=== PATIENT | female | born 1960 | race Caucasian/White ===

== ENCOUNTER 2021-05-20 16:07 | Outpatient (CLI) | payer OTHER ==
[~2021-05-20] VITALS: Ht 167.7 cm; Wt 66.4 kg
[2021-05-20] VITALS (7 sets, daily range): BP systolic 117–177; BP diastolic 62–85
[2021-05-20] MEDS ORDERED: NS IV 500 ML 500 ML ONE (16:28)
[2021-05-20] MEDS ORDERED: NS IV 500 ML 500 ML IV SCH ×2 (16:30)
[2021-05-20 17:32] LABS: HEMOGLOBIN 6.5 g/dL (11.5-16.0)
[2021-05-21 01:45] VITALS: BP 157/79
[2021-05-21 02:53] VITALS: BP 157/79
== END 2021-05-21 02:15 | disposition other institution (70) ==
LOC: SDC 16:07 → 4TH 18:50 → SDC 05-21 02:15
PROVIDERS: ATTEND Internal Medicine Nephrology
DX: D64.9 Anemia, unspecified (principal); M31.0 Hypersensitivity angiitis
CPT/HCPCS: 36415; 36430; 85014; 85018; 86850; 86900; 86901; 86920

== ENCOUNTER 2021-06-08 08:38 | Emergency (ER) | payer OTHER ==
[~2021-06-08] VITALS: Ht 167.7 cm; Wt 66.4 kg
[2021-06-08] MEDS ORDERED: LORazepam INJ 2 MG/ML (ATIVAN) VIAL IVP ONE ×3 (08:45→19:45)
[2021-06-08] MEDS ORDERED: LORazepam INJ 2 MG/ML (ATIVAN) VIAL ONE ×4 (08:46→19:31)
[2021-06-08 08:52] LABS: BASOPHILS # (AUTO) 0.1 10^3/uL (0.0-0.1); BASOPHILS % (AUTO) 1 % (0-10); EOSINOPHILS # (AUTO) 0.2 10^3/uL (0.0-0.3); EOSINOPHILS % (AUTO) 3 % (0-10); HEMATOCRIT 35 % (35-52); HEMOGLOBIN 11.6 g/dL (11.5-16.0); LYMPHOCYTES # (AUTO) 0.8 10^3/uL (1.0-4.0); LYMPHOCYTES % (AUTO) 10 % (12-44); MEAN CORPUSCULAR HEMOGLOBIN 32 pg (25-34); MEAN CORPUSCULAR HGB CONC 33 g/dL (32-36); MEAN CORPUSCULAR VOLUME 95 fL (80-99); MEAN PLATELET VOLUME 9.6 fL (9.0-12.2); MONOCYTES # (AUTO) 1.4 10^3/uL (0.0-1.0); MONOCYTES % (AUTO) 16 % (0-12); NEUTROPHILS # (AUTO) 5.9 10^3/uL (1.8-7.8); NEUTROPHILS % (AUTO) 70 % (42-75); PLATELET COUNT 272 10^3/uL (130-400); WHITE BLOOD COUNT 8.4 10^3/uL (4.3-11.0)
--- NOTE | 2021-06-08 08:53 | ED Neurological Problem ---
General Chief Complaint: Neuro-Stroke Like Symptoms Stated Complaint: POSSIBLE STROKE Source: patient Exam Limitations: no limitations History of Present Illness Date Seen by Provider: June 08, 2021 Time Seen by Provider: 08:36 Initial Comments Patient to the ER by EMS from [facility] with chief complaints had a couple focal seizures on the right side and is having some left facial droop. She has a history of stroke with small amount of right-sided residual deficits however patient walks and talks normally according to staff. She is very hard to get answers from and not acting herself. She is not having any nausea fevers chills or cough. She says her only complaint she has is that she is having a headache. Blood sugar is 100. Last known well time 0810. 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 He says all the symptoms of seizures and stroke just started and February of this year a few months ago. She is been at [facility] as well as [facility] for inpatient. 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 Allergies and Home Medications Allergies Coded Allergies: No Known Drug Allergies (Unverified , 05/20/21) Patient Home Medication List Home Medication List Reviewed: Yes Review of Systems Review of Systems Constitutional: No chills, No fever, No malaise; weakness Eyes: Denies Blindness, Denies Blurred Vision Ears, Nose, Mouth, Throat: denies ear discharge, denies nose pain Respiratory: No dyspnea on exertion, No short of breath Cardiovascular: No chest pain, No edema Gastrointestinal: No abdominal pain, No constipation, No diarrhea Genitourinary: No discharge, No dysuria Musculoskeletal: No back pain, No joint pain Skin: No change in color, No dryness Psychiatric/Neurological: Denies Anxiety, Denies Depressed All Other Systems Reviewed Negative Unless Noted: Yes Past Nzfflis-Cxsoks-Pbygri Hx Patient Social History Tobacco Use?: No Use of E-Cig and/or Vaping dev: No Substance use?: No Physical Exam Vital Signs Vital Signs - First Documented 06/08/21 08:38 Temp 36.0 Pulse 80 Resp 20 B/P (MAP) 195/122 (146) Pulse Ox 93 O2 Delivery Room Air Capillary Refill : Height, Weight, BMI Height: '" Weight: lbs. oz. kg; BMI Method: General Appearance: WD/WN, mild distress HEENT: PERRL/EOMI, TMs normal, pharynx normal Neck: non-tender, full range of motion, supple, normal inspection Respiratory: chest non-tender, lungs clear, normal breath sounds, no respiratory distress, no accessory muscle use Cardiovascular: normal peripheral pulses, regular rate, rhythm Peripheral Pulses: 2+ Dorsalis Pedis (R), 2+ Left Dors-Pedis (L) Gastrointestinal: normal bowel sounds, non tender, soft, no organomegaly Neurologic/Psychiatric: alert, normal mood/affect Cra[place] Nerves: normal hearing, PERRL Coordination/Gait: normal finger to nose; No normal gait Motor/Sensory: pronator drift (R), pronator drift (L), sensory deficit Skin: normal color, warm/dry (Left side) Stroke Onset of Symptoms Date of Onset of Symptoms: June 08, 2021 Time of Symptom Onset: 08:10 Onset of Symptoms: Yes Symptoms onset unknown: No NIH Stroke Scale Assessment Select: Initial Level of Consciousness: 0=Alert (0), Level of Consciousness- Questions: 0=Answers both month/age (0), LOC Commands: 0=Performs both tasks (0), Gaze: Partial Gaze Palsy (1), Visual Walker: 0=No visual loss Unable to evaluate (0), Facial Movement (Facial Paresis): 1=Minor paralysis Left face (1), Motor Function-Arms Right: 4=No movement (4), Motor Function-Arms Left: 1=Drift (1), Motor Function-Legs Right: 1=Drift (1), Motor Function-Legs Left: 1=Drift (1), Limb Ataxia: 0=Absent (0), Sensory: 1=Mild to Moderate loss Left side decree sensation lower extremity (1), Best Language: 2=Severe aphasia (2), Dysarthria: 0=Normal (0), Extinction & Inattention: 0=No abnormality Unable to assess (0), Total: 12 Stroke Thrombolytic Exclusion Age 18 or Over: Yes Acute intenal hemorrhage: No History of CVA: Yes Uncontrolled Coagulation Defec: No Intracranial Hemorrhage: No Severe Hypertension: No GI or Bleed: No Subarachnoid Hemorrhage: No Intracranial Neoplasm/Aneurysm: No Oral Anticoagulants: No Surgery or Trauma: No Puncture of Non-Compressible V: No Recent CPR: No Diabetic Hemorrhagic Retinopat: No Organ Biopsy: No Recent Obstetric Delivery: No Glucose: No (107) Significant Hepatic Dysfunctio: No NIH Stoke Scale >22: No Bacterial Endocarditis: No Pericarditis: No Improving Symptoms: No Platelets: No TPA Contraindication: No Progress/Results/Core Measures Results/Orders Lab Results Laboratory Tests Test 06/08/21 08:40 06/08/21 08:42 06/08/21 09:01 06/08/21 11:00 Range/Units White Blood Count 8.4 4.3-11.0 10^3/uL Red Blood Count 3.67 L 3.80-5.11 10^6/uL Hemoglobin 11.6 11.5-16.0 g/dL Hematocrit 35 35-52 % Mean Corpuscular Volume 95 80-99 fL Mean Corpuscular Hemoglobin 32 25-34 pg Mean Corpuscular Hemoglobin Concent 33 32-36 g/dL Red Cell Distribution Width 23.7 H 10.0-14.5 % Platelet Count 272 130-400 10^3/uL Mean Platelet Volume 9.6 9.0-12.2 fL Immature Granulocyte % (Auto) 1 % Neutrophils (%) (Auto) 70 42-75 % Lymphocytes (%) (Auto) 10 L 12-44 % Monocytes (%) (Auto) 16 H 0-12 % Eosinophils (%) (Auto) 3 0-10 % Basophils (%) (Auto) 1 0-10 % Neutrophils # (Auto) 5.9 1.8-7.8 10^3/uL Lymphocytes # (Auto) 0.8 L 1.0-4.0 10^3/uL Monocytes # (Auto) 1.4 H 0.0-1.0 10^3/uL Eosinophils # (Auto) 0.2 0.0-0.3 10^3/uL Basophils # (Auto) 0.1 0.0-0.1 10^3/uL Immature Granulocyte # (Auto) 0.1 0.0-0.1 10^3/uL Glucometer 85 70-110 MG/DL Prothrombin Time 12.3 12.2-14.7 SEC INR Comment 0.9 0.8-1.4 Activated Partial Thromboplast Time 33 24-35 SEC D-Dimer 2.28 H 0.00-0.49 UG/ML Sodium Level 130 L 135-145 MMOL/L Potassium Level 4.7 3.6-5.0 MMOL/L Chloride Level 93 L 98-107 MMOL/L Carbon Dioxide Level 16 L 21-32 MMOL/L Anion Gap 21 H 5-14 MMOL/L Blood Urea Nitrogen 52 H 7-18 MG/DL Creatinine 5.97 H 0.60-1.30 MG/DL Estimat Glomerular Filtration Rate 7 BUN/Creatinine Ratio 9 Glucose Level 91 70-105 MG/DL Calcium Level 8.5 8.5-10.1 MG/DL Corrected Calcium 9.3 8.5-10.1 MG/DL Total Bilirubin 0.3 0.1-1.0 MG/DL Aspartate Amino Transf (AST/SGOT) 15 5-34 U/L Alanine Aminotransferase (ALT/SGPT) < 6 0-55 U/L Alkaline Phosphatase 60 40-136 U/L Troponin I < 0.028 <0.028 NG/ML Total Protein 5.8 L 6.4-8.2 GM/DL Albumin 3.0 L 3.2-4.5 GM/DL Phenytoin (Dilantin) Level <1.8 L 10.0-20.0 ug/mL Urine Color YELLOW Urine Clarity CLEAR Urine pH 7.5 5-9 Urine Specific [place] 1.015 L 1.016-1.022 Urine Protein 3+ H NEGATIVE Urine Glucose (UA) NEGATIVE NEGATIVE Urine Ketones NEGATIVE NEGATIVE Urine Nitrite NEGATIVE NEGATIVE Urine Bilirubin NEGATIVE NEGATIVE Urine Urobilinogen 0.2 < = 1.0 MG/DL Urine Leukocyte Esterase NEGATIVE NEGATIVE Urine RBC (Auto) 3+ H NEGATIVE Urine RBC >100 H /HPF Urine WBC 2-5 /HPF Urine Squamous Epithelial Cells RARE /HPF Urine Crystals PRESENT H /LPF Urine Bacteria TRACE /HPF Urine Casts NONE /LPF Urine Mucus NEGATIVE /LPF Urine Culture Indicated NO My Orders Orders - VÍCTOR GUERIN Code/Resuscitation (06/08/21 08:45) Cbc With Automated Diff (06/08/21 08:45) Protime With Inr (06/08/21 08:45) Partial Thromboplastin Time (06/08/21 08:45) Comprehensive Metabolic Panel (06/08/21 08:45) Fibrin Degradation Products (06/08/21 08:45) Troponin I [place]on (06/08/21 08:45) Ua Culture If Indicated (06/08/21 08:45) Chest 1 View, Ap/Pa Only (06/08/21 08:45) Catheter(Urinary) Insert & Ass 03,15 (06/08/21 08:45) Ekg Tracing (06/08/21 08:45) Nothing By Mouth (06/08/21 Breakfast) Accucheck Stat ONCE (06/08/21 08:45) Ed Iv/Invasive Line Start (06/08/21 08:45) Ed Iv/Invasive Line Start (06/08/21 08:45) Vital Signs Stroke Patient Q15M (06/08/21 08:45) Ct Head Wo-R/O Stroke (06/08/21 08:45) O2 (06/08/21 08:45) Intake & Output 06,14,22 (06/08/21 08:45) Monitor-Rhythm Ecg Trace Only (06/08/21 08:45) Dysphagia Screening Tool Q10MX1 (06/08/21 08:45) Post Thrombolytic Adminstratio (06/08/21 08:45) Lorazepam Injection (Ativan Injection) (06/08/21 08:45) Lorazepam Injection (Ativan Injection) (06/08/21 08:46) Dilantin (Phenytoin) (06/08/21 09:02) Ceftriaxone 1 Gm Pre-Mix (Rocephin 1 Gm (06/08/21 09:45) Azithromycin Injection (Zithromax Inject (06/08/21 09:45) Vancomycin Injection (Vancomycin Injecti (06/08/21 10:00) Cefepime Injection (Maxipime Injection) (06/08/21 10:00) Ct Angio Head/Neck (06/08/21 09:58) Lorazepam Injection (Ativan Injection) (06/08/21 11:00) Lorazepam Injection (Ativan Injection) (06/08/21 10:48) Iohexol Injection (Omnipaque 350 Mg/Ml 1 (06/08/21 11:30) Received Contrast (Hold Metformin- Contr (06/08/21 11:30) Ns (Ivpb) (Sodium Chloride 0.9% Ivpb Bag (06/08/21 11:30) Sodium Chloride Flush (Catheter Flush Sy (06/08/21 11:30) Mri Brain W/Wo Contrast (06/08/21 12:09) Gadoterate Inj (Radiology) (Clariscan In (06/08/21 13:45) Lorazepam Injection (Ativan Injection) (06/08/21 14:57) Lorazepam Injection (Ativan Injection) (06/08/21 16:00) Labetalol Injection (Normodyne Injection (06/08/21 16:45) Labetalol Injection (Normodyne Injection (06/08/21 18:15) Hydralazine Injection (Apresoline Inject (06/08/21 18:45) Lorazepam Injection (Ativan Injection) (06/08/21 19:31) Lorazepam Injection (Ativan Injection) (06/08/21 19:45) Medications Given in ED Vital Signs/I&O 06/08/21 06/08/21 08:38 20:26 Temp 36.0 36.0 Pulse 80 75 Resp 20 14 B/P (MAP) 195/122 (146) 159/102 Pulse Ox 93 99 O2 Delivery Room Air Room Air Progress Progress Note #1: Time: 09:43 Progress Note Patient presents with a pretty significant blood pressure around 200/110 systolic. She is otherwise has aseptic vital signs no history of coughing. She is having some small focal seizures on the left side. She is having left-sided facial droop and her right arm does not move independently. She does have a little drift in her left and right lower extremities that is symmetric. She has some drift in her left arm. She seem to be having some focal seizures on the left side making it very difficult for her to communicate with us so we gave her a couple points for aphasia however we also gave her a milligram of Ativan and now she is quite somnolent but arousable. Based on her chest x-ray findings we collected blood cultures and initiated cefepime and vancomycin for pneumonia, healthcare associated. 0930: Dr Mcghee; stroke neurologist on-call at [facility]. She recommends we do a CT angiogram. She is not a good candidate for tPA because she uses blood thinners. If the CT angiogram is occluded and the patient and/or family wish to pursue endovascular intervention call her back. Otherwise if it is normal we should pursue an MRI with and without. If the MRI demonstrates stroke then we should adjust her anticoagulants. If the MRI looks more like a seizures and press we should look for an underlying condition stimulating her seizures and or adjust her antiepileptics. Progress Note #2: Time: 11:37 Progress Note Patient was spearing seeing a [place] tonic-clonic seizure so we gave her 2 mg IV Ativan. Seizure activity lasted for about 1 minute. We padded her bed rails and put her in the recovery position afterwards. She has gone down for a CT angiogram now. Progress Note #3: Time: 12:27 Progress Note MRI states will be about 1 to 2 hours before they are ready for her. Nursing staff to try to get a hold of family to fill out consents for MRI. Progress Note #4: Time: 15:43 Progress Note Patient's blood pressure is 156/104 which is acceptable at this time. We had to give her a second dose of ativan 2 mg IV. Total of 5mg so far. We discussed the case with [facility] and they are at capacity for everything the floor. Progress Note #5: Time: 18:41 Progress Note Blood pressure crept up over 200 systolic 120 diastolic so we gave 10 more milligrams of labetalol which brought her down to 179/116 after about 30 minutes. We will give her another 10 mg of hydralazine to try and get the diastolic down around 105-110. Initial ECG Impression Date: June 08, 2021 Initial ECG Impression Time: 09:07 Initial ECG Rate: 72 Initial ECG Rhythm: Normal Sinus Initial ECG Intervals: Normal Initial ECG Impression: Normal Comment Normal sinus rhythm without clinically relevant ST changes. Diagnostic Imaging Diagonstic Imaging: Xray Plain Films/CT/US/NM/MRI: chest Comments [facility], [place], [place] NAME: SUSHIL YOO [facility] REC#: [id number] PT STATUS: REG ER : 1960 PHYSICIAN: VÍCTOR GUERIN MD ADMIT DATE: 06/08/21/ER Draft Date of Exam:06/08/21 CHEST 1 VIEW, AP/PA ONLY INDICATION: Stroke. Frontal chest obtained at 9:02 a.m. Heart is borderline in size. There is mild central vascular congestion. There is patchy infiltrate in both lung bases. There is no pneumothorax or pleural fluid. Dual lumen central catheter seen from right IJ approach, tip overlying right atrium. IMPRESSION: Central vascular congestion with mild bibasilar infiltrate. No pneumothorax or pleural fluid. Dictated on workstation # [id number] Dict: 06/08/21904 Trans: 06/08/21906 CV [id number] Interpreted by: VI ZAMUDIO MD Electronically signed by: Reviewed: Reviewed by Me Diagonstic Imaging: CT Plain Films/CT/US/NM/MRI: head Comments [facility] [place] NAME: SUSHIL YOO [facility] REC#: [id number] PT STATUS: REG ER : 1960 PHYSICIAN: VÍCTOR GUERIN MD ADMIT DATE: 06/08/21/ER Draft Date of Exam:06/08/21 CT HEAD WO-R/O STROKE CLINICAL INDICATION: Patient is weak and not very alert. Patient has history of seizures. Possible stroke. EXAM: Axial CT scan of the brain performed without IV contrast with sagittal and coronal reformatted images. Auto Exposure Controls were utilized during the CT exam to meet ALARA standards for radiation dose reduction. COMPARISON: None. FINDINGS: There appears to be subtle patchy low-density involving the cortical and subcortical regions of the bilateral occipital lobe regions. There is a small area of low density involving the parasagittal high left parietal lobe region as well. There is another small area of subcortical low-density involving the parasagittal posterior left frontal lobe of unknown age. There is no intracranial hemorrhage, brain herniation, or midline shift. There is no hydrocephalus. The basal cisterns are unremarkable. There is no dense vessel sign. There are multiple partially calcified circumscribed nodular areas involving the scalp and about the head. These may represent sebaceous cysts or epidermoid inclusion cysts. IMPRESSION: 1: There is the appearance of small patchy areas of low density involving the cortical and subcortical regions of both occipital lobes and left parietal lobe region which is nonspecific. Etiology such as posterior reversible encephalopathy, infarct, or a component of postictal changes may also be considered. MRI of the brain with and without contrast is suggested for further evaluation. 2: There is a small area of subcortical low density involving the high parasagittal posterior left frontal region of unknown age or etiology. MRI of the brain with and without contrast would also better evaluate. 3: There are multiple partially calcified nodular areas involving the scalp about the head which may be related to sebaceous cysts or epidermoid inclusion cysts. These lesions have a benign appearance. 4: The results of this report were discussed with Dr. Víctor Guerin via the telephone on 06/08/2021 at 0910 hours. Dictated on workstation # [id number] Dict: 06/08/21 0858 Trans: 06/08/21 0918 [id number] Interpreted by: ANALI ROA MD Electronically signed by: Reviewed: Reviewed by Me Diagonstic Imaging: CT (Angiogram) Plain Films/CT/US/NM/MRI: head (Head and neck) Comments NAME: SUSHIL YOO [facility] REC#: [id number] PT STATUS: REG ER : 1960 PHYSICIAN: VÍCTOR GUERIN MD ADMIT DATE: 06/08/21/ER Draft Date of Exam:06/08/21 CT ANGIO HEAD/NECK CLINICAL INDICATION: Patient with stroke, seizure and weakness. Patient not alert. EXAMS: 1: Head CT with and without IV contrast. Auto Exposure Controls were utilized during the CT exam to meet ALARA standards for radiation dose reduction. 2: CT angiogram of the head and neck performed with 100 cc of Omnipaque 350 IV contrast. Sagittal and coronal MIP reformations were created for better visualization of vascular anatomy. CT angiogram was post-processed using RAPID LVO detection to include quantitative measurements of cerebral blood flow and automated results notification to the stroke and/or neurointerventional team. COMPARISON: Head CT without contrast dated 06/08/2021 at 0844 hours. FINDINGS: HEAD CT: Stable small patchy areas of cortical and subcortical low density involving the bilateral parietal lobes and left parietal lobe region. Stable small area of confluent low density involving the high posterior left frontal region which is of unknown age. There is no abnormal IV contrast enhancement seen on this exam. There is no brain herniation or midline shift. The remainder of this exam shows no significant interval change compared to the prior study of comparison. CT ANGIOGRAM: There is dense contrast bolus seen within the right subclavian vein and superior vena cava which causes streak artifact obscuring some portions of the aortic arch and proximal great vessels. The aortic arch and proximal great vessels are not completely imaged. The origin and proximal aspect of the brachiocephalic artery is not completely imaged. Otherwise, visualized portions of the brachiocephalic artery are patent. Bilateral subclavian arteries, bilateral common carotid arteries, bilateral ECA, and bilateral cervical ICA are patent. The petrous, cavernous, and supraclinoid ICA are patent. There is a small-caliber right A1 JACQUES which is likely congenital. The left JACQUES and anterior communicating artery is prominent and patent. There is a short segment area of ppkphynb-et-kcgyxo stenosis involving a branch of the pericallosal A3 JACQUES region. The bilateral MCAs and distal branches are patent. left GRAIN MILLER HELPER is seen. The bilateral logistics analyst and distal branches are patent. Bilateral superior cerebellar arteries, basilar artery, bilateral PICA and intradural vertebral arteries are patent. The cervical vertebral arteries are patent. The neck soft tissue structures are unremarkable. There is small right pleural effusion or pleural thickening seen. Nonspecific groundglass opacification and parenchymal bands involving both upper lobes with pleural parenchymal thickening/scarring. Cervical spine shows no significant abnormality. IMPRESSION: 1: Stable small amount of low density involving the cortical white matter regions of both occipital lobes and left parietal lobe region which is nonspecific. There is no associated IV contrast enhancement. Etiology such as posterior reversible encephalopathy syndrome may be considered. Postictal changes cannot be completely excluded. Superimposed infarcts cannot be completely excluded. MRI of the brain would help better evaluate. 2: Stable small area of subcortical low density involving the high posterior left frontal lobe region of unknown age or significance. There is no IV contrast enhancement. MRI of the brain would better evaluate. 3: CT angiogram of the [place] of [place] and neck shows no large vessel occlusion. 4: There is a jluekixw-yy-ovcazl short segment stenosis involving a branch of the pericallosal A3 JACQUES region. Otherwise, the remainder of the distal vessels are patent. 5: There is no other significant vascular abnormality seen. Results of this report were discussed with Dr. Víctor Guerin via the telephone on 06/08/2021 at 1210 hours. Dictated on workstation # [id number] Dict: 06/08/21 1148 Trans: 06/08/21 1226 [id number] [id number] Interpreted by: ANALI ROA MD Electronically signed by: Reviewed: Reviewed by Me Diagonstic Imaging: MRI Plain Films/CT/US/NM/MRI: head Comments [facility] [place], [place] NAME: SUSHIL YOO [facility] REC#: [id number] PT STATUS: REG ER : 1960 PHYSICIAN: VÍCTOR GUERIN MD ADMIT DATE: 06/08/21/ER Signed Date of Exam:06/08/21 MRI BRAIN W/WO CONTRAST PROCEDURE: MR imaging of the brain with and without contrast. TECHNIQUE: Multiplanar, multisequence MR imaging of the brain was performed with and without contrast. INDICATION: Stroke. Seizure. Right-sided weakness. COMPARISON: CTA head and neck, also performed today. FINDINGS: Diffuse subcortical T2 hyperintensities in the occipital, posterior temporal and parietal lobes. There is also multifocal both subcortical and cortical edema in the frontal lobes, left greater than right, bilateral basal ganglia, insula and anterior temporal lobes. There is patchy enhancement associated with the abnormal signal in the frontal lobes, left greater than right. There is some subtle restricted water diffusion associated with the left frontal signal abnormality. Nonspecific calcification in the right basal ganglia. No hydrocephalus or extra-axial fluid collections. Normal intracranial flow voids. The orbits are negative. Visualized paranasal sinuses and mastoids are clear. Normal bone marrow signal. Numerous nonspecific nodules in the scalp demonstrate no appreciable enhancement. IMPRESSION: MRI findings are most compatible with advanced acute hypertensive encephalopathy (aka PRES). There are regions of enhancement and restricted water diffusion, most notably in the left frontal lobe, which raise the possibility of nonreversible changes. Dictated by: Dictated on workstation # [id number] Dict: 06/08/21 1447 Trans: 06/08/211707 AS6 [id number] Interpreted by: JENNY CARTER MD Electronically signed by: JENNY CARTER MD 06/08/211707 Reviewed: Reviewed by Me Departure Impression Primary Impression: PRES (posterior reversible encephalopathy syndrome) Additional Impression: Malignant hypertension Disposition: XFER SHT-TRM HOSP Condition: Stable Transfer Transfer Reason: Exceeds level of care (No inpt HD) Time Spoke to Accepting Phy: 16:10 Transfer Progress Notes 1530: Spoke to [facility] transfer team and they will call us back. 1610: Discussed the case with Dr. Contreras at [facility] and he agrees to accept patient to the neuro. Transfer Facility: [place], [place] Method of Transfer: EMS Departure-Patient Inst. Referrals: NO,LOCAL PHYSICIAN (PCP/Family) Primary Care Physician VÍCTOR GUERIN June 08, 2021 08:53
--- NOTE | 2021-06-08 09:07 | Diagnostic Imaging Report ---
INDICATION: Stroke. Frontal chest obtained at 9:02 a.m. Heart is borderline in size. There is mild central vascular congestion. There is patchy infiltrate in both lung bases. There is no pneumothorax or pleural fluid. Dual lumen central catheter seen from right IJ approach, tip overlying right atrium. IMPRESSION: Central vascular congestion with mild bibasilar infiltrate. No pneumothorax or pleural fluid. Dictated by: Dictated on workstation # [id number]
--- NOTE | 2021-06-08 09:18 | Diagnostic Imaging Report ---
CLINICAL INDICATION: Patient is weak and not very alert. Patient has history of seizures. Possible stroke. EXAM: Axial CT scan of the brain performed without IV contrast with sagittal and coronal reformatted images. Auto Exposure Controls were utilized during the CT exam to meet ALARA standards for radiation dose reduction. COMPARISON: None. FINDINGS: There appears to be subtle patchy low-density involving the cortical and subcortical regions of the bilateral occipital lobe regions. There is a small area of low density involving the parasagittal high left parietal lobe region as well. There is another small area of subcortical low-density involving the parasagittal posterior left frontal lobe of unknown age. There is no intracranial hemorrhage, brain herniation, or midline shift. There is no hydrocephalus. The basal cisterns are unremarkable. There is no dense vessel sign. There are multiple partially calcified circumscribed nodular areas involving the scalp and about the head. These may represent sebaceous cysts or epidermoid inclusion cysts. IMPRESSION: 1: There is the appearance of small patchy areas of low density involving the cortical and subcortical regions of both occipital lobes and left parietal lobe region which is nonspecific. Etiology such as posterior reversible encephalopathy, infarct, or a component of postictal changes may also be considered. MRI of the brain with and without contrast is suggested for further evaluation. 2: There is a small area of subcortical low density involving the high parasagittal posterior left frontal region of unknown age or etiology. MRI of the brain with and without contrast would also better evaluate. 3: There are multiple partially calcified nodular areas involving the scalp about the head which may be related to sebaceous cysts or epidermoid inclusion cysts. These lesions have a benign appearance. 4: The results of this report were discussed with Dr. Víctor Guerin via the telephone on 06/08/2021 at 0910 hours. Dictated by: Dictated on workstation # [id number]
[2021-06-08 09:27] LABS: FIBRIN DEGRADATION PRODUCTS 2.28 UG/ML (0.00-0.49); INR 0.9 (0.8-1.4); PROTHROMBIN TIME PATIENT 12.3 SEC (12.2-14.7)
[2021-06-08] MEDS ORDERED: cefTRIAXone 1 GM PRE-MIX 50 ML IV ONE (09:45)
[2021-06-08] MEDS ORDERED: AZITHROMYCIN INJECTION 500 MG in NS (IVPB) 250 ML IV ONE (09:45)
[2021-06-08 10:00] LABS: ALANINE AMINOTRANSFERASE < 6 U/L (0-55); ALKALINE PHOSPHATASE 60 U/L (40-136); BILIRUBIN,TOTAL 0.3 MG/DL (0.1-1.0); BUN/CREATININE RATIO 9; CALCIUM 8.5 MG/DL (8.5-10.1); CARBON DIOXIDE 16 MMOL/L (21-32); CHLORIDE 93 MMOL/L (98-107); CREATININE SERUM 5.97 MG/DL (0.60-1.30); GFR ESTIMATED 7; GLUCOSE 91 MG/DL (70-105); POTASSIUM 4.7 MMOL/L (3.6-5.0); SODIUM 130 MMOL/L (135-145); TOTAL PROTEIN 5.8 GM/DL (6.4-8.2)
[2021-06-08] MEDS ORDERED: CEFEPIME INJECTION 1,000 MG in NS (IVPB) 50 ML IV ONE (10:00)
[2021-06-08] MEDS ORDERED: VANCOMYCIN INJECTION 1,250 MG in NS (IVPB) 250 ML IV ONE (10:00)
[2021-06-08 11:09] LABS: BILIRUBIN,URINE NEGATIVE (NEGATIVE); CLARITY,URINE CLEAR; COLOR,URINE YELLOW; GLUCOSE, URINE (UA) NEGATIVE (NEGATIVE); KETONES,URINE NEGATIVE (NEGATIVE); LEUKOCYTE ESTERASE ,URINE NEGATIVE (NEGATIVE); NITRITE,URINE NEGATIVE (NEGATIVE); PH,URINE 7.5 (5-9); PROTEIN,URINE 3+ (NEGATIVE)
[2021-06-08 11:26] LABS: BACTERIA,URINE TRACE /HPF; RBC,URINE >100 /HPF; SQUAMOUS EPITHELIAL CELL,UR RARE /HPF
[2021-06-08] MEDS ORDERED: IOHEXOL 350 MG/ML 100 ML (OMNIPAQUE 350) VIAL IV ONE (11:30)
[2021-06-08] MEDS ORDERED: HOLD METFORMIN - RECEIVED CONTRAST 20 ML VIAL IV SCH (11:30)
[2021-06-08] MEDS ORDERED: CATHETER FLUSH 10 ML SYR IV PRN (11:30)
[2021-06-08] MEDS ORDERED: NS 100 ML (IVPB) BAG IV ONE (11:30)
--- NOTE | 2021-06-08 12:27 | Diagnostic Imaging Report ---
CLINICAL INDICATION: Patient with stroke, seizure and weakness. Patient not alert. EXAMS: 1: Head CT with and without IV contrast. Auto Exposure Controls were utilized during the CT exam to meet ALARA standards for radiation dose reduction. 2: CT angiogram of the head and neck performed with 100 cc of Omnipaque 350 IV contrast. Sagittal and coronal MIP reformations were created for better visualization of vascular anatomy. CT angiogram was post-processed using RAPID LVO detection to include quantitative measurements of cerebral blood flow and automated results notification to the stroke and/or neurointerventional team. COMPARISON: Head CT without contrast dated 06/08/2021 at 0844 hours. FINDINGS: HEAD CT: Stable small patchy areas of cortical and subcortical low density involving the bilateral parietal lobes and left parietal lobe region. Stable small area of confluent low density involving the high posterior left frontal region which is of unknown age. There is no abnormal IV contrast enhancement seen on this exam. There is no brain herniation or midline shift. The remainder of this exam shows no significant interval change compared to the prior study of comparison. CT ANGIOGRAM: There is dense contrast bolus seen within the right subclavian vein and superior vena cava which causes streak artifact obscuring some portions of the aortic arch and proximal great vessels. The aortic arch and proximal great vessels are not completely imaged. The origin and proximal aspect of the brachiocephalic artery is not completely imaged. Otherwise, visualized portions of the brachiocephalic artery are patent. Bilateral subclavian arteries, bilateral common carotid arteries, bilateral ECA, and bilateral cervical ICA are patent. The petrous, cavernous, and supraclinoid ICA are patent. There is a small-caliber right A1 JACQUES which is likely congenital. The left JACQUES and anterior communicating artery is prominent and patent. There is a short segment area of xderznfv-mf-vtlxjh stenosis involving a branch of the pericallosal A3 JACQUES region. The bilateral MCAs and distal branches are patent. left TAPE CONTROLLED MACHINE STITCHER is seen. The bilateral merchandise collector and distal branches are patent. Bilateral superior cerebellar arteries, basilar artery, bilateral PICA and intradural vertebral arteries are patent. The cervical vertebral arteries are patent. The neck soft tissue structures are unremarkable. There is small right pleural effusion or pleural thickening seen. Nonspecific groundglass opacification and parenchymal bands involving both upper lobes with pleural parenchymal thickening/scarring. Cervical spine shows no significant abnormality. IMPRESSION: 1: Stable small amount of low density involving the cortical white matter regions of both occipital lobes and left parietal lobe region which is nonspecific. There is no associated IV contrast enhancement. Etiology such as posterior reversible encephalopathy syndrome may be considered. Postictal changes cannot be completely excluded. Superimposed infarcts cannot be completely excluded. MRI of the brain would help better evaluate. 2: Stable small area of subcortical low density involving the high posterior left frontal lobe region of unknown age or significance. There is no IV contrast enhancement. MRI of the brain would better evaluate. 3: CT angiogram of the [employer] and neck shows no large vessel occlusion. 4: There is a kvtjudaq-tm-qlypxj short segment stenosis involving a branch of the pericallosal A3 JACQUES region. Otherwise, the remainder of the distal vessels are patent. 5: There is no other significant vascular abnormality seen. Results of this report were discussed with Dr. Víctor Guerin via the telephone on 06/08/2021 at 1210 hours. Dictated by: Dictated on workstation # [id number]
[2021-06-08] MEDS ORDERED: GADOTERATE 0.5 MMOL/ML (CLARISCAN) 15 ML VIAL IV ONE (13:45)
--- NOTE | 2021-06-08 15:20 | Diagnostic Imaging Report ---
PROCEDURE: MR imaging of the brain with and without contrast. TECHNIQUE: Multiplanar, multisequence MR imaging of the brain was performed with and without contrast. INDICATION: Stroke. Seizure. Right-sided weakness. COMPARISON: CTA head and neck, also performed today. FINDINGS: Diffuse subcortical T2 hyperintensities in the occipital, posterior temporal and parietal lobes. There is also multifocal both subcortical and cortical edema in the frontal lobes, left greater than right, bilateral basal ganglia, insula and anterior temporal lobes. There is patchy enhancement associated with the abnormal signal in the frontal lobes, left greater than right. There is some subtle restricted water diffusion associated with the left frontal signal abnormality. Nonspecific calcification in the right basal ganglia. No hydrocephalus or extra-axial fluid collections. Normal intracranial flow voids. The orbits are negative. Visualized paranasal sinuses and mastoids are clear. Normal bone marrow signal. Numerous nonspecific nodules in the scalp demonstrate no appreciable enhancement. IMPRESSION: MRI findings are most compatible with advanced acute hypertensive encephalopathy (aka PRES). There are regions of enhancement and restricted water diffusion, most notably in the left frontal lobe, which raise the possibility of nonreversible changes. Dictated by: Dictated on workstation # [id number]
[2021-06-08] MEDS: LORazepam INJ 2 MG/ML (ATIVAN) VIAL IVP ONE ×2 (16:03→16:50)
[2021-06-08] MEDS ORDERED: LABETALOL HCL 20 MG/4 ML VIAL IV ONE ×2 (16:45→18:15)
[2021-06-08] MEDS ORDERED: hydrALAZINE (APESOLINE) 20 MG/ML VIAL IV ONE (18:45)
[2021-06-08 20:26] VITALS: BP 159/102
== END 2021-06-08 20:26 | disposition short-term general hospital (02) ==
LOC: EDUNIT# 08:38 → ER 08:40
DX: I67.83 Posterior reversible encephalopathy syndrome (principal); I10 Essential (primary) hypertension; R29.712 NIHSS score 12; Z86.73 Personal history of transient ischemic attack (TIA), and cerebral infarction without residual deficits; Z86.16 Personal history of COVID-19
CPT/HCPCS: 36415; 51702; 70450; 70496; 70498; 70553; 71045; 80053; 80185; 81000; 82947; 84484; 85025; 85379; 85610; 85730; 93005; 93041

== ENCOUNTER → 2021-06-18 | Outpatient (CLI) | payer OTHER ==
[~2021-06-18] VITALS: Ht 167.6 cm; Wt 66.0 kg
== END | disposition home or self-care (01) ==
LOC: PREOP 06:42
PROVIDERS: ATTEND Surgery
DX: Z01.818 Encounter for other preprocedural examination (principal)

== ENCOUNTER 2021-10-29 05:34 | Outpatient (CLI) | payer OTHER ==
[~2021-10-29] VITALS: Ht 167.7 cm; Wt 63.6 kg
[2021-10-29] MEDS ORDERED: VIT1TABL59 PO (14:42)
[2021-10-29] MEDS ORDERED: PRED10TA22 PO (14:42)
[2021-10-29] MEDS ORDERED: CARV12.53 PO (14:42)
[2021-10-29] MEDS ORDERED: LEVO75TA97 PO (14:42)
[2021-10-29] MEDS ORDERED: CALC667C10 PO (14:42)
[2021-10-29] MEDS ORDERED: HYDR-3924 PO (14:42)
[2021-10-29] MEDS ORDERED: LEVE500T6 PO (14:42)
[2021-10-29] MEDS ORDERED: LEVE250T5 PO (14:42)
[2021-10-29] MEDS ORDERED: LOSA100T57 PO (14:42)
[2021-10-29] MEDS ORDERED: AMLO-250 PO (14:42)
== END 2021-10-29 15:06 ==
LOC: PREOP 05:34
PROVIDERS: ATTEND Surgery
DX: Z01.818 Encounter for other preprocedural examination (principal)

== ENCOUNTER 2021-11-05 10:31 | Day surgery (SDC) | payer OTHER ==
[2021-11-05] VITALS (10 sets, daily range): BP systolic 76–141; BP diastolic 59–95
[~2021-11-05] VITALS: Ht 167.7 cm; Wt 63.6 kg
[~2021-11-05 10:31] MED LIST: AMLO-250 PO; CALC667C10 PO; CARV12.53 PO; HYDR-3924 PO; LEVE250T5 PO; LEVE500T6 PO; LEVO75TA97 PO; LOSA100T57 PO; PRED10TA22 PO; VIT1TABL59 PO
[2021-11-05] MEDS ORDERED: LIDOCAINE/EPI 2% 1:200,00 (XYLOCAINE) 10 ML VIAL ONE ×2 (10:47)
[2021-11-05] MEDS ORDERED: MIDAZOLAM 2 MG/2 ML (VERSED) VIAL ONE (11:11)
[2021-11-05] MEDS ORDERED: fentaNYL INJ 100 MCG/2 ML AMP ONE (11:11)
[2021-11-05] MEDS ORDERED: proPOfol 200 MG/20 ML (DIPRIVAN) VIAL IV ONE (11:11)
[2021-11-05] MEDS ORDERED: ONDANSETRON 4 MG/2 ML (SDV) Z0FRAN ONE (11:11)
[2021-11-05] MEDS ORDERED: NEOSTIGMINE 3 MG/3 ML VIAL ONE (11:11)
[2021-11-05] MEDS ORDERED: ROCURONIUM 10 MG/ML 5 ML SYRINGE IV ONE (11:11)
[2021-11-05] MEDS ORDERED: LIDOCAINE PF 2% 5 ML (XYLOCAINE) VIAL ONE (11:11)
[2021-11-05] MEDS ORDERED: GLYCOPYRROLATE 0.2 MG/ML (ROBINUL) 2 ML VIAL ONE (11:11)
[2021-11-05] MEDS ORDERED: LACTATED RINGERS 1,000 ML IV PRN (11:45)
[2021-11-05] MEDS ORDERED: ceFAZolin INJECTION 2,000 MG in NS (IVPB) 50 ML IV ONE (11:45)
[2021-11-05] MEDS ORDERED: ceFAZolin INJECTION 2,000 MG ONE (11:47)
[2021-11-05 11:51] LABS: CALCIUM 8.6 MG/DL (8.5-10.1); CREATININE SERUM 3.66 MG/DL (0.60-1.30); POTASSIUM 2.8 MMOL/L (3.6-5.0)
[2021-11-05] MEDS ORDERED: NS IV 500 ML 500 ML ONE (12:00)
[2021-11-05] MEDS ORDERED: NS IV 500 ML 500 ML IV ONE (12:15)
[2021-11-05] MEDS ORDERED: SUCCINYLCHOLINE INJ 100 MG/5 ML SYR/VIAL ONE (12:37)
--- NOTE | 2021-11-05 13:13 | Anesthesia-General Post-Op ---
General Patient Condition Mental Status/LOC: Same as Preop Cardiovascular: Satisfactory Nausea/Vomiting: Absent Respiratory: Satisfactory Pain: Controlled Complications: Absent Post Op Complications Complications None Follow Up Care/Instructions Patient Instructions None needed. Anesthesia/Patient Condition Patient Condition Patient is doing well, no complaints, stable vital signs, no apparent adverse anesthesia problems. No complications reported per nursing. BILLY OVERTON CRNA Nov 05, 2021 13:13
[2021-11-05] MEDS ORDERED: ONDANSETRON 4 MG/2 ML (SDV) Z0FRAN IVP PRN (13:15)
[2021-11-05] MEDS ORDERED: HYDROmorphone 2 MG/ML VIAL (DILAUDID) IV ONE (13:15)
[2021-11-05] MEDS ORDERED: MEPERIDINE (DEMEROL) INJ 50 MG/ML IVP ONE (13:15)
[2021-11-05] MEDS ORDERED: morphine INJ 10 MG/ML 1ML (SYR OR VIAL) IVP ONE (13:15)
--- NOTE | 2021-11-05 14:38 | Discharge Inst-Simple/Standard ---
Discharge Inst-Standard Discharge Medications New, Converted or Re-Newed RX: RX on Chart Patient Instructions/Follow Up Plan of Care/Instructions/FU: 2 weeks Nelson Activity as Tolerated: Yes Discharge Diet: Regular Diet Other Inst to Patient Follow up Appt: Make appointment for 2 week Nelson. Dialysis appointment tomorrow. Instructions: No lifting greater than 10 pounds. No strenuous activity. May shower in 24 hours, no tub bath or soaking. Use incentive spirometer at home as directed. No Smoking Skin/Wound Care: You have special glue over your incision that will fall off on it's own. Symptoms to Report: Appetite Changes, Extremity Discoloration, Numbness/Tingling, Swelling Increased, Bleeding Excessive, Eyesight Changes, Pain Increased, Urine Color Change, Constipation(Persistent), Fever over 101 degree F, Pain/Pressure in chest, Urinating Difficulty, Cough Up/Vomit Blood, Heart Beat Irreg/Pounding, Pain/Pressure in jaw, Vaginal Bleeding Increase, Cramps in feet or legs, Lightheadedness, Pain/Pressure in shoulder, Diarrhea(Persistent), Memory Changes Suddenly, Questions/Concerns, Weight gain consecutive days, Dizziness/Fainting, Nausea/Vomiting, Shortness of Breath, Weight gain over 2 pounds If questions or concerns contact your physician Or seek help at emergency department. JOSE R DOYLE DO Nov 05, 2021 14:32
--- NOTE | 2021-11-05 21:20 | OPERATIVE REPORT ---
DATE OF SERVICE: 11/05/2021 PREOPERATIVE DIAGNOSIS: Renal failure. POSTOPERATIVE DIAGNOSES: Renal failure. PROCEDURE: Laparoscopic peritoneal catheter placement. SURGEON: Jose R Damon DO. ANESTHESIA: General. ESTIMATED BLOOD LOSS: Minimal. COMPLICATIONS: None. INDICATIONS: The patient is a 61-year-old female on hemodialysis, currently she is wishing to convert to peritoneal dialysis. She understands risks and benefits of procedure and wishes to proceed. Consent was signed in the chart. DESCRIPTION OF PROCEDURE: The patient was taken to the operating suite. She was prepped and draped in sterile fashion. Timeout was performed. Local anesthetic was infiltrated just above the umbilicus. An 11-blade scalpel was used to make a small skin incision. Cautery was used to dissect down through the subcutaneous tissue to the fascia, which was then scored, elevated and the abdomen was entered. An 0 Vicryl was placed in a xoefsr-dt-tksjh fashion for closure at the end of the case. A fowler trocar was inserted and pneumoperitoneum was achieved. Under direct visualization of the laparoscope, an 8 mm trocar was then placed at an angle just to the left of the umbilicus down to the rectus sheath muscle, dividing toward the peritoneal dialysis catheter be placed down in the pelvis. Once the trocar was in, the catheter was inserted through the tube and the trocar was removed. The cuff was brought in just above the peritoneum. The catheter was then tunneled from the insertion site out laterally after the area was injected with local anesthetic. The catheter was then flushed and [place] fluid without difficulty leaving approximately 300 mL of fluid within the pelvis. The catheter was secured with 3-0 silk suture. The 12 mm trocar was then removed. The fascia was then closed with the previously placed 0 Vicryl. Skin was then closed using 4-0 Monocryl in subcuticular fashion. The skin was then washed and dried and Skin Affix was placed over the incisions. The patient then had sterile bandage placed over the catheter. The patient tolerated the procedure well without any complications. She was taken to recovery room in stable condition. Job ID: [id number] DocumentID: [id number] Dictated Date: 11/05/2021 14:45:49 Self Sealing Fuel Tank Builder Date: 11/05/2021 21:20:23 Dictated By: JOSE R DAMON DO
== END 2021-11-05 14:55 | disposition home or self-care (01) ==
LOC: SDC 10:31
PROVIDERS: ATTEND Surgery
DX: N18.6 End stage renal disease (principal); Z99.2 Dependence on renal dialysis; M31.0 Hypersensitivity angiitis
CPT/HCPCS: 36415; 80048; 87081

== ENCOUNTER 2022-01-21 05:32 | Outpatient (CLI) | payer OTHER ==
[~2022-01-21] VITALS: Ht 167.7 cm; Wt 77.0 kg
== END 2022-01-27 10:38 | disposition home or self-care (01) ==
LOC: PREOP 05:32
PROVIDERS: ATTEND Surgery
DX: Z01.818 Encounter for other preprocedural examination (principal); N18.6 End stage renal disease; Z99.2 Dependence on renal dialysis

== ENCOUNTER 2022-02-04 12:10 | Day surgery (SDC) | payer OTHER ==
[~2022-02-04] VITALS: Ht 167.7 cm; Wt 77.0 kg
[2022-02-04] VITALS (8 sets, daily range): BP systolic 106–164; BP diastolic 67–114
[~2022-02-04 12:10] MED LIST changes: +ERGO1250 PO; +POTA10CA43 PO; +TORS100T4 PO
[2022-02-04] MEDS ORDERED: ceFAZolin INJECTION 2,000 MG in NS (IVPB) 50 ML IV ONE (12:30)
[2022-02-04] MEDS ORDERED: NS IV 500 ML 500 ML IV PRN (12:30)
[2022-02-04] MEDS ORDERED: BUP/EPI 0.25% 1:200,000 (MARCAINE) 30 ML VIAL ONE (12:40)
--- NOTE | 2022-02-04 13:56 | Progress Note-Pre Operative ---
Pre-Operative Progress Note Date of Available H&P: Jan 13, 2022 Date H&P Reviewed: Feb 04, 2022 Time H&P Reviewed: 13:56 History & Physical: H&P Reviewed, Patient Examed, No changes noted Pre-Operative Diagnosis: esrd JOSE R DOYLE DO Feb 04, 2022 13:56
[2022-02-04] MEDS ORDERED: PROPOFOL INJECTION 50 ML IV ONE (14:01)
[2022-02-04] MEDS ORDERED: MIDAZOLAM 2 MG/2 ML (VERSED) VIAL ONE (14:02)
--- NOTE | 2022-02-04 14:36 | Progress Note-Post Operative ---
Post-Operative Progess Note Surgeon (s)/Brake Repairer (s) Surgeon JOSE R DOYLE DO Brake Repairer: na Pre-Operative Diagnosis esrd Post-Operative Diagnosis same Procedure & Operative Findings Date of Procedure 02/04/22 Procedure Performed/Findings Procedure: Removal of Hemodialysis catheter. Patient prepped and draped in sterile fashion. 7mL of 1/4 percent marcaine with epinephrine as used to anesthetize around the catheter. Hemostat was used to dissect around catheter and free the cuff. The catheter was then removed in its entirety. Pressure was held for 10 min and hemostasis achieved. Area was washed and dried and sterile bandage applied. Anesthesia Type mac c local Estimated Blood Loss Estimated blood loss (mL): minimal Specimens/Packing Specimens Removed JOSE R Mendoza DO Feb 04, 2022 14:36
--- NOTE | 2022-02-04 14:39 | Discharge Inst-Simple/Standard ---
Discharge Inst-Standard Patient Instructions/Follow Up Plan of Care/Instructions/FU: 2 weeks Nelson Activity as Tolerated: No Discharge Diet: Regular Diet Other Inst to Patient Follow up Appt: Make appointment for 2 week. Instructions: Change bandage daily and as needed, to keep area clean and dry until healed. No strenuous activity. May shower in 24 hours, no tub bath or soaking. Use incentive spirometer at home as directed. No Smoking Skin/Wound Care: Change bandage daily and as needed, to keep area clean and dry until healed. Symptoms to Report: Appetite Changes, Extremity Discoloration, Numbness/Tingling, Swelling Increased, Bleeding Excessive, Eyesight Changes, Pain Increased, Urine Color Change, Constipation(Persistent), Fever over 101 degree F, Pain/Pressure in chest, Urinating Difficulty, Cough Up/Vomit Blood, Heart Beat Irreg/Pounding, Pain/Pressure in jaw, Vaginal Bleeding Increase, Cramps in feet or legs, Lightheadedness, Pain/Pressure in shoulder, Diarrhea(Persistent), Memory Changes Suddenly, Questions/Concerns, Weight gain consecutive days, Dizziness/Fainting, Nausea/Vomiting, Shortness of Breath, Weight gain over 2 pounds If questions or concerns contact your physician Or seek help at emergency department. JOSE R DOYLE DO Feb 04, 2022 14:39
--- NOTE | 2022-02-04 14:49 | Anesthesia-General Post-Op ---
MAC Patient Condition Mental Status/LOC: Same as Preop Cardiovascular: Satisfactory Nausea/Vomiting: Absent Respiratory: Satisfactory Pain: Controlled Complications: Absent Post Op Complications Complications None Follow Up Care/Instructions Patient Instructions None needed. Anesthesiology Discharge Order Discharge Order Patient is doing well, no complaints, stable vital signs, no apparent adverse anesthesia problems. No complications reported per nursing. CHUCKIE SEPULVEDA CRNA Feb 04, 2022 14:49
[2022-02-04] MEDS ORDERED: ONDANSETRON 4 MG/2 ML (SDV) Z0FRAN IVP PRN (15:00)
[2022-02-04] MEDS ORDERED: fentaNYL INJ 100 MCG/2 ML AMP IVP ONE (15:00)
[2022-02-04] MEDS ORDERED: morphine INJ 10 MG/ML 1ML (SYR OR VIAL) IVP ONE (15:00)
[2022-02-04] MEDS ORDERED: MEPERIDINE (DEMEROL) INJ 50 MG/ML IVP ONE (15:00)
== END 2022-02-04 16:00 | disposition home or self-care (01) ==
LOC: SDC 12:10
PROVIDERS: ATTEND Surgery
DX: T82.49XA Other complication of vascular dialysis catheter, initial encounter (principal); N18.6 End stage renal disease; Z28.310 Unvaccinated for COVID-19; Y84.1 Kidney dialysis as the cause of abnormal reaction of the patient, or of later complication, without mention of misadventure at the time of the procedure
CPT/HCPCS: 87081